=== PATIENT | male | born 1965 | race Caucasian/White ===

== ENCOUNTER 2017-03-31 20:32 | Emergency (ER) | payer BC ==
[2017-03-31] MEDS ORDERED: GENTAMICIN SULFATE 0.3% OPTH 5 ML BTL OPTH SCH (21:00)
--- NOTE | 2017-03-31 21:00 | Emergency Department Record ---
History of Present Illness - General Chief complaint: Eye Problem Stated complaint: METAL IN EYE Time Seen by Provider: 03/31/17 20:57 Source: Patient Mode of Arrival: Ambulatory Limitations: No limitations - History of Present Illness Initial comments: 51 yo male presents to ED with a CC of probable foreign body in the left eye that occurred several hours ago. Patient reports mild blurred vision and irritation, denies direct injury or trauma to the eye. Patient denies health problems at his baseline, reports that he does see an eye doctor in [place]. chief complaint: Foreign body Onset/Timin -: Hour(s) Location: Left eye Eye Symptoms: Foreign body sensation, Pain Severity scale (1-10): 5 Consistency: Constant Associated Symptoms: None - Related Data Visual acuity (L) = 20/: 50 Visual acuity (R) = 20/: 30 With correction: Yes (reading gl) Patient Tetanus UTD (within 5 yrs): (unsure) Home Medications Medication Instructions Recorded Confirmed Last Taken No Home Med [NO HOME MEDS] 03/31/17 03/31/17 Unknown Allergies Allergy/AdvReac Type Severity Reaction Status Date / Time No Known Drug Allergies Allergy Verified 03/31/17 20:42 Travel Screening - Travel/Exposure Within Last 30 Days Have you traveled within the last 30 days?: No - Travel Symptoms Symptom Screening: None Review of Systems Constitutional: Denies: Chills, Fever, Malaise, Night sweats Eyes: Reports: Eye pain, Other (FB sensation). Denies: Eye discharge ENT: Denies: Congestion, Ear pain, Epistaxis Respiratory: Denies: Cough, Dyspnea Cardiovascular: Denies: Chest pain, Dyspnea on exertion Endocrine: Denies: Fatigue, Heat or cold intolerance Gastrointestinal: Denies: Abdominal pain, Nausea, Vomiting Genitourinary: Denies: Incontinence, Retention Musculoskeletal: Denies: Arthralgia, Back pain Skin: Denies: Bruising, Change in color Neurological: Denies: Abnormal gait, Confusion, Headache, Seizure Psychiatric: Denies: Anxiety Hematological/Lymphatic: Denies: Anemia, Blood Clots Past Medical History - SOCIAL HISTORY Smoking Status: Never smoker - RESPIRATORY Hx Respiratory Disorders: No - CARDIOVASCULAR Hx Cardio Disorders: No - NEURO Hx Neuro Disorders: No - GI Hx GI Disorders: No - Hx Genitourinary Disorders: No - ENDOCRINE Hx Endocrine Disorders: No - MUSCULOSKELETAL Hx Musculoskeletal Disorders: No - PSYCH Hx Psych Problems: No - HEMATOLOGY/ONCOLOGY Hx Hematology/Oncology Disorders: No Family Medical History Any Significant Family History?: Yes Hx Diabetes: Mother Hx Heart Disease: Father, Grandparents Physical Exam - General General Appearance: Alert, Oriented x3, Cooperative, No acute distress Limitations: No limitations - Head Head exam: Atraumatic, Normocephalic, Normal inspection Head exam detail: negative: Abrasion, Contusion, Shah's sign, General tenderness, Hematoma, Laceration - Eye Eye exam: Normal appearance, Conjunctival injection. negative: Periorbital swelling, Periorbital tenderness, Scleral icterus Visual acuity (L) = 20/: 50 Visual acuity (R) = 20/: 30 With correction: Yes (reading gl) Image of Eyes: 1 - Iris/Pupil 2 - Small FB present at the 3 o'clock position - ENT Ear exam: negative: Auricular hematoma, Auricular trauma Nasal Exam: negative: Active bleeding, Discharge, Dried blood, Foreign body Mouth exam: negative: Drooling, Laceration, Muffled voice, Tongue elevation - Neck Neck exam: Normal inspection. negative: Meningismus, Tenderness - Respiratory Respiratory exam: Normal lung sounds bilaterally. negative: Rales, Respiratory distress, Rhonchi, Stridor - Cardiovascular Cardiovascular Exam: Regular rate, Normal rhythm, Normal heart sounds - GI/Abdominal GI/Abdominal exam: Soft. negative: Rebound, Rigid, Tenderness - Rectal Rectal exam: Deferred - exam: Deferred - Extremities Extremities exam: Normal inspection. negative: Calf tenderness, Pedal edema, Tenderness - Back Back exam: Denies: CVA tenderness (R), CVA tenderness (L) - Neurological Neurological exam: Alert, Normal gait, Oriented X3 - Psychiatric Psychiatric exam: Normal affect, Normal mood - Skin Skin exam: Normal color. negative: Abrasion Type of lesion: negative: abrasion Course Vital Signs 03/31/17 20:42 Temperature 98.2 F Pulse Rate [ 55 L Pulse Ox Probe] Respiratory 18 Rate Blood Pressure 121/80 [Left Arm] Pulse Ox 98 - Reevaluation(s) Reevaluation #1: 03/31/17 21:04 Wood's lamp examination demonstrates no corneal abrasion, following alcaine administration approximately 2/3rd's of the FB visualized was able to be removed with a small residual piece remaining. Patient was counseled to follow- up with Dr. Moore tomorrow, and to call in peg morning for a follow-up appointment. Patient was started on gentamycin eye drops prior to discharge as well. Patient verbalizes understanding of all instructions and appears stable for discharge at this time. Disposition Disposition: Discharge Clinical Impression: Corneal foreign body Qualifiers: Encounter type: initial encounter Laterality: left Qualified Code(s): T15.02XA - Foreign body in cornea, left eye, initial encounter Disposition: Home, Self-Care Condition: (2) Stable Instructions: Eye Foreign Body (ED) Additional Instructions: Return to ED if your symptoms worsen or if you have any concerns. Follow-up with Dr. Moore tomorrow as directed, call for appointment. Gentamycin as directed. Referrals: HUBER MOORE [MEDICAL DOCTOR] - Forms: Patient Portal Access Time of Disposition: 21:00 Quality - Quality Measures Quality Measures: N/A - Blood Pressure Screening Does Patient Have Any of the Following: No Blood Pressure Classification: Pre-Hypertensive BP Reading Systolic Measurement: 116 Diastolic Measurement: 82 Screening for High Blood Pressure: < Pre-Hypertensive BP, F/U Documented > [ G8950] Pre-Hypertensive Follow-up Interventions: Referral to alternative/primary care provider.
[2017-03-31] MEDS ORDERED: PROPARACAINE HCL OPTH 15ML BTL OPTH ONE (21:20)
== END 2017-03-31 21:42 | disposition home or self-care (01) ==
LOC: ER 20:32
DX: T15.02XA Foreign body in cornea, left eye, initial encounter (principal)
CPT/HCPCS: 65220; 99283

== ENCOUNTER 2017-11-09 07:06 | Emergency (ER) | payer BC ==
--- NOTE | 2017-11-09 07:41 | Emergency Department Record ---
History of Present Illness - General Chief complaint: Pain Stated complaint: HIP PAIN Time Seen by Provider: 11/09/17 07:19 Source: Patient Mode of Arrival: Ambulatory Limitations: No limitations - History of Present Illness Initial comments: The patient is here due to L hip pain for about 2 weeks. He denies any fall or trauma and states the pain seems worse with movement and bending. There is no complaints of AP, dysuria, fever, chills, or leg numbness or weakness. The patient has no hx of similar issues. MD Complaint: Joint pain Onset/Timin -: Days(s) Location: Left History of Same: No Radiation: None Severity scale (1-10): 7 Quality: Aching, Dull Consistency: Intermittent Improves with: Movement Worsens with: Rest Associated Symptoms: Denies other symptoms - Related Data Previous Rx's Medication Instructions Recorded Lidocaine Patch [Lidoderm] 1 ea TOP DAILY #14 patch 11/09/17 Naproxen [Naprosyn] 500 mg PO BID #14 tablet. 11/09/17 Allergies Allergy/AdvReac Type Severity Reaction Status Date / Time No Known Drug Allergies Allergy Verified 11/09/17 07:17 Travel Screening - Travel/Exposure Within Last 30 Days Have you traveled within the last 30 days?: No - Travel/Exposure Within Last Year Have you traveled outside the [place] in the last year?: No - Additonal Travel Details Have you been exposed to anyone with a communicable illness?: No - Travel Symptoms Symptom Screening: None Review of Systems Constitutional: Denies: Chills, Fever Past Medical History - SOCIAL HISTORY Smoking Status: Never smoker Alcohol Use: Rare Drug Use: None - RESPIRATORY Hx Respiratory Disorders: No - CARDIOVASCULAR Hx Cardio Disorders: No - NEURO Hx Neuro Disorders: No - GI Hx GI Disorders: No - Hx Genitourinary Disorders: No - ENDOCRINE Hx Endocrine Disorders: No - MUSCULOSKELETAL Hx Musculoskeletal Disorders: No - PSYCH Hx Psych Problems: No - HEMATOLOGY/ONCOLOGY Hx Hematology/Oncology Disorders: No Family Medical History Any Significant Family History?: No Hx Diabetes: Mother Hx Heart Disease: Father, Grandparents Physical Exam - General General Appearance: Alert, Oriented x3, Cooperative, No acute distress - Head Head exam: Atraumatic - Neck Neck exam: Normal inspection, Full ROM. negative: Tenderness - Respiratory Respiratory exam: Normal lung sounds bilaterally. negative: Respiratory distress - Cardiovascular Cardiovascular Exam: Regular rate, Normal rhythm, Normal heart sounds - GI/Abdominal GI/Abdominal exam: Soft, Normal bowel sounds. negative: Tenderness - Extremities Extremities exam: Normal inspection, Full ROM (There is mild pain with ROM.), Normal capillary refill, Tenderness (There is tenderness to palpation over the L greater trochanter.). negative: Joint swelling - Neurological Neurological exam: Alert, Normal gait. negative: Abnormal gait, Motor sensory deficit Course Vital Signs 11/09/17 07:11 Temperature 97.3 F L Pulse Rate 59 L Respiratory 18 Rate Blood Pressure 133/73 Pulse Ox 98 - Reevaluation(s) Reevaluation #1: I did explain to the patient that it appears he has most likely bursitis near his greater trochanter. We will place the patient on an NSAID and Lidoderm patches and place a consult to Dr. Bazan for next week. 11/09/17 07:58 Medical Decision Making - Data Complexity MDM Data: X-Ray Ordered and/or Reviewed - Radiology Data Radiology results: Report reviewed (R Hip: Neg for any bony abnormality. There does appear to be mild calcifications near the greater troch. bursae.) Disposition Disposition: Discharge Clinical Impression: Bursitis Disposition: Home, Self-Care Condition: (2) Stable Instructions: Hip Bursitis (ED) Additional Instructions: Please use ice to the L hip pain area when possible. Take the Naprosyn and Lidoderm as directed. Please also see Dr. Bazan in the Specialty clinic next week for recheck. Prescriptions: Lidocaine Patch [Lidoderm] 1 ea TOP DAILY #14 patch Naproxen [Naprosyn] 500 mg PO BID #14 tablet. Referrals: [facility] [Provider Group] Forms: Patient Portal Access Time of Disposition: 08:03 Quality - Quality Measures Quality Measures: N/A - Blood Pressure Screening View Details: Yes Does Patient Have Any of the Following: No Blood Pressure Classification: Normal BP Reading Systolic Measurement: 104 Diastolic Measurement: 68 Screening for High Blood Pressure: < Normal BP, F/U Not Required > [G8783]
--- NOTE | 2017-11-09 19:41 | RADIOLOGY REPORT ---
EXAM: HIP,UNILAT, 2-3 VIEW LEFT HISTORY: LEFT HIP PAIN FOR THREE DAYS, NO KNOWN INJURY. TECHNIQUE: AP pelvis, AP lateral left hip. COMPARISON: None. FINDINGS: No fracture or dislocation of the left hip evident. No destructive lesion seen. Small amount of calcification adjacent to the greater trochanter may be related to some trochanteric bursitis. No erosion of the underlying greater trochanter evident. Joint space appears maintained in the left hip. Mild degenerative change lower lumbar spine. IMPRESSION: 1. SOME MILD CALCIFICATION LATERAL TO THE GREATER TROCHANTER, PROBABLY REPRESENTING SOME TROCHANTERIC BURSITIS. 2. LEFT HIP APPEARS OTHERWISE NEGATIVE. JOB NUMBER: [id number] [facility], [place]
== END 2017-11-09 08:13 | disposition home or self-care (01) ==
LOC: ER 07:06
DX: M70.71 Other bursitis of hip, right hip (principal)
CPT/HCPCS: 99283

== ENCOUNTER 2018-11-26 16:19 | Emergency (ER) | payer BC ==
[2018-11-26] MEDS ORDERED: PROPARACAINE HCL OPTH 15ML BTL OPTH ONE (16:50)
--- NOTE | 2018-11-26 17:24 | Emergency Department Record ---
History of Present Illness - General Chief complaint: Eye Problem Stated complaint: JUHI DESHPANDE/METAL Time Seen by Provider: 11/26/18 17:20 Source: Patient Mode of Arrival: Ambulatory - History of Present Illness Initial comments: right FB working with a grinder and plater at home 2 hours ago. chief complaint: Foreign body Onset/Timin -: Hour(s) Location: Right eye Place: Home Eye Symptoms: Foreign body sensation, Pain Severity: Mild Severity scale (1-10): 4 If Pain, Quality: Aching Consistency: Constant Associated Symptoms: None Treatments Prior to Arrival: None - Related Data Visual acuity (L) = 20/: 50 Visual acuity (R) = 20/: 50 With correction: Yes Hx Tetanus Toxoid Vaccination: Yes Year of Tetanus Vaccination: 2017 Patient Tetanus UTD (within 5 yrs): Yes Previous Rx's Medication Instructions Recorded Lidocaine Patch [Lidoderm] 1 ea TOP DAILY #14 patch 11/09/17 Naproxen [Naprosyn] 500 mg PO BID #14 tablet. 11/09/17 Allergies Allergy/AdvReac Type Severity Reaction Status Date / Time No Known Drug Allergies Allergy Verified 11/26/18 16:54 Travel Screening - Travel/Exposure Within Last 30 Days Have you traveled within the last 30 days?: No Review of Systems Reviewed: No additional complaints except as noted below Constitutional: Reports: As per HPI. Denies: Chills, Fever, Malaise, Night sweats, Weakness, Weight change Eyes: Reports: As per HPI. Denies: Eye discharge, Eye pain, Photophobia, Vision change ENT: Reports: As per HPI. Denies: Congestion, Dental pain, Ear pain, Epistaxis , Hearing loss, Throat pain Respiratory: Reports: As per HPI. Denies: Cough, Dyspnea, Hemoptysis, Stridor, Wheezes Cardiovascular: Reports: As per HPI. Denies: Arrhythmia, Chest pain, Dyspnea on exertion, Edema, Murmurs, Orthopnea, Palpitations, Paroxysmal nocturnal dyspnea, Rheumatic Fever, Syncope Endocrine: Reports: As per HPI. Denies: Fatigue, Heat or cold intolerance, Polydipsia, Polyuria Gastrointestinal: Reports: As per HPI. Denies: Abdominal pain, Constipation, Diarrhea, Hematemesis, Hematochezia, Melena, Nausea, Vomiting Genitourinary: Reports: As per HPI. Denies: Dysuria, Frequency, Hematuria, Incontinence, Retention, Testicular pain, Testicular mass, Urgency Musculoskeletal: Reports: As per HPI. Denies: Arthralgia, Back pain, Gout, Joint swelling, Myalgia, Neck pain Skin: Reports: As per HPI. Denies: Bruising, Change in color, Change in hair/ nails, Lesions, Pruritus, Rash Neurological: Reports: As per HPI. Denies: Abnormal gait, Confusion, Headache, Numbness, Paresthesias, Seizure, Tingling, Tremors, Vertigo, Weakness Psychiatric: Reports: As per HPI. Denies: Anxiety, Auditory hallucinations, Depression, Homicidal thoughts, Suicidal thoughts, Visual hallucinations Hematological/Lymphatic: Reports: As per HPI. Denies: Anemia, Blood Clots, Easy bleeding, Easy bruising, Swollen glands Past Medical History - SOCIAL HISTORY Smoking Status: Never smoker Alcohol Use: None Drug Use: None - RESPIRATORY Hx Respiratory Disorders: No - CARDIOVASCULAR Hx Cardio Disorders: No - NEURO Hx Neuro Disorders: No - GI Hx GI Disorders: No - Hx Genitourinary Disorders: No - ENDOCRINE Hx Endocrine Disorders: No - MUSCULOSKELETAL Hx Musculoskeletal Disorders: No - PSYCH Hx Psych Problems: No - HEMATOLOGY/ONCOLOGY Hx Hematology/Oncology Disorders: No Family Medical History Any Significant Family History?: Yes Hx Diabetes: Mother Hx Heart Disease: Father, Grandparents Physical Exam - General General Appearance: Alert, Oriented x3, Cooperative, No acute distress - Head Head exam: Normal inspection - Eye Eye exam: Normal appearance, PERRL, Other (metalic FB on the right cornea) Pupils: Normal accommodation With correction: Yes - ENT ENT exam: Normal exam, Mucous membranes moist, Normal external ear exam, Normal orophraynx, TM's normal bilaterally Ear exam: Normal external inspection. negative: External canal tenderness Nasal Exam: Normal inspection. negative: Discharge, Sinus tenderness Mouth exam: Normal external inspection, Tongue normal Teeth exam: Normal inspection. negative: Dental caries Throat exam: Normal inspection. negative: Tonsillar erythema, Tonsillar exudate - Neck Neck exam: Normal inspection, Full ROM. negative: Tenderness - Respiratory Respiratory exam: Normal lung sounds bilaterally. negative: Respiratory distress - Cardiovascular Cardiovascular Exam: Regular rate, Normal rhythm, Normal heart sounds - GI/Abdominal GI/Abdominal exam: Soft, Normal bowel sounds. negative: Tenderness - Rectal Rectal exam: Deferred - exam: Deferred - Extremities Extremities exam: Normal inspection, Full ROM, Normal capillary refill. negative: Tenderness - Back Back exam: Reports: Normal inspection, Full ROM. Denies: Muscle spasm, Rash noted, Tenderness - Neurological Neurological exam: Alert, Normal gait, Oriented X3, Reflexes normal - Psychiatric Psychiatric exam: Normal affect, Normal mood - Skin Skin exam: Dry, Intact, Normal color, Warm Course Vital Signs 11/26/18 16:51 Temperature 97.8 F Pulse Rate 66 Respiratory 20 Rate Blood Pressure 114/73 Pulse Ox 97 - Reevaluation(s) Reevaluation #1: removed metal with q tip and removed the rust ring 95 % with the opthalmic kaylin. after using proparacaine drops fluorescein postive before the removal of metal and visual acuity 20/50 both eyes. 11/26/18 17:43 Disposition Clinical Impression: Corneal FB (foreign body) Qualifiers: Encounter type: subsequent encounter Laterality: right Qualified Code(s): T15.01XD - Foreign body in cornea, right eye, subsequent encounter Disposition: Home, Self-Care Condition: (1) Good Instructions: Eye Foreign Body (ED) Additional Instructions: follow up with family Dr in 5 days or the ED if he gets worse. sulf 10 drops four times a day for 7 days Forms: Patient Portal Access Time of Disposition: 17:48 Quality - Quality Measures Quality Measures: N/A - Blood Pressure Screening Does Patient Have Any of the Following: No Blood Pressure Classification: Normal BP Reading Systolic Measurement: 114 Diastolic Measurement: 73 Screening for High Blood Pressure: < Normal BP, F/U Not Required > [G8783]
[2018-11-26] MEDS ORDERED: SULFACETAMIDE SODIUM 15ML BTL OPTH ONE (17:47)
== END 2018-11-26 17:57 | disposition home or self-care (01) ==
LOC: ER 16:19
DX: T15.01XA Foreign body in cornea, right eye, initial encounter (principal); W31.1XXA Contact with metalworking machines, initial encounter; Y92.009 Unspecified place in unspecified non-institutional (private) residence as the place of occurrence of the external cause
CPT/HCPCS: 65220; 99283